=== PATIENT | female | born 1970 | race American Indian/Alaskan Native ===

== ENCOUNTER 2019-11-10 19:38 | Emergency (ER) | payer SELFPAY ==
[2019-11-10] MEDS ORDERED: ASPIRIN 325 MG TAB PO ONE (20:19)
--- NOTE | 2019-11-10 20:57 | XRay Report ---
CHEST 2 VIEWS INDICATION: Chest Pain. COMPARISON: None. FINDINGS: Support devices: None. Heart: Mild cardiac enlargement. Lungs/Pleura: No acute air space or interstitial disease. No significant pleural effusion. IMPRESSION: No acute findings. Signer Name: Papo Dunne MD Signed: 11/10/2019 8:53 PM Workstation Name: [id number]
[2019-11-10 21:05] LABS: Basophils # (Auto) 0.1 K/mm3 (0.0-0.1); Eosinophils # (Auto) 0.2 K/mm3 (0.0-0.4); Eosinophils % (Auto) 3.8 % (0.0-4.3); Hematocrit 35.4 % (30.3-42.9); Hemoglobin 11.7 gm/dl (10.1-14.3); Lymphocytes # (Auto) 2.2 K/mm3 (1.2-5.4); Lymphocytes % (Auto) 36.8 % (13.4-35.0); Mean Corpuscular HGB Conc 33 % (30-34); Mean Corpuscular Volume 74 fl (79-97); Monocytes # (Auto) 0.6 K/mm3 (0.0-0.8); Monocytes % (Auto) 10.2 % (0.0-7.3); Platelet Count 279 K/mm3 (140-440); Red Blood Count 4.76 M/mm3 (3.65-5.03); Red Cell Distribution Width 19.6 % (13.2-15.2)
[2019-11-10 21:21] LABS: BUN/Creatinine Ratio 21; Blood Urea Nitrogen 17 mg/dL (7-17); Calcium 9.2 mg/dL (8.4-10.2); Hemolysis Index 14
[2019-11-11] MEDS ORDERED: amLODIPine 5 MG TAB PO ONE (00:50)
[2019-11-11 00:51] VITALS: BP 164/100
--- NOTE | 2019-11-11 01:12 | Emergency Department Report ---
ED General Adult HPI - General Chief complaint: Chest Pain Stated complaint: BLOOD PRESSURE PROBLEM Time Seen by Provider: 11/11/19 00:35 Source: family Mode of arrival: Ambulatory Limitations: No Limitations - History of Present Illness Initial comments: Patient is a 49-year-old F [place] female who is presenting with elevated blood pressure. Patient states she has a history of high blood pressure but is currently on no medications. She has no primary care physician. Patient is been urged to come to the hospital by her daughter. Patient states her blood pressure normally is around 170-180 systolic. Today she was having some chest discomfort that she described as a sore intermittent pain with no shortness of breath. She had a mild headache. She took her blood pressure and was greater than 200 systolic. On arrival was 223/110. Patient states chest discomfort is 2 out of 10 in severity. She denies cough cold congestion shortness of breath fevers chills. There is no exertional component to her chest discomfort. - Related Data Previous Rx's Medication Instructions Recorded Last Taken Type Amlodipine Besylate [Norvasc] 5 mg PO DAILY #30 tablet 11/11/19 Unknown Rx Allergies Allergy/AdvReac Type Severity Reaction Status Date / Time No Known Allergies Allergy Unverified 11/10/19 20:19 ED Review of Systems ROS: Stated complaint: BLOOD PRESSURE PROBLEM Other details as noted in HPI Comment: All other systems reviewed and negative ED Past Medical Hx - Past Medical History Previous Medical History?: Yes Hx Hypertension: Yes - Surgical History Past Surgical History?: No - Social History Smoking Status: Never Smoker Substance Use Type: None - Medications Home Medications: Home Medications Medication Instructions Recorded Confirmed Last Taken Type Amlodipine Besylate [Norvasc] 5 mg PO DAILY #30 tablet 11/11/19 Unknown Rx ED Physical Exam - General Limitations: No Limitations General appearance: alert, in no apparent distress - Head Head exam: Present: atraumatic, normocephalic - Eye Eye exam: Present: normal appearance, PERRL, EOMI - ENT ENT exam: Present: mucous membranes moist - Neck Neck exam: Present: normal inspection - Respiratory Respiratory exam: Present: normal lung sounds bilaterally. Absent: respiratory distress, wheezes, rales, rhonchi - Cardiovascular Cardiovascular Exam: Present: regular rate, normal rhythm, normal heart sounds. Absent: systolic murmur, diastolic murmur, rubs, gallop - GI/Abdominal GI/Abdominal exam: Present: soft, normal bowel sounds. Absent: distended, tenderness, guarding, rebound - Extremities Exam Extremities exam: Present: normal inspection - Back Exam Back exam: Present: normal inspection - Neurological Exam Neurological exam: Present: alert, oriented X3 - Psychiatric Psychiatric exam: Present: normal affect, normal mood - Skin Skin exam: Present: warm, dry, intact, normal color. Absent: rash ED Course Vital Signs 11/10/19 11/11/19 20:06 00:50 Temperature 98.5 F Pulse Rate 68 Respiratory 18 Rate Blood Pressure 223/110 Blood Pressure 164/100 [Left] O2 Sat by Pulse 99 Oximetry ED Medical Decision Making - Lab Data Result diagrams: 11/10/19 20:28 11/10/19 20:28 Lab Results 11/10/19 11/10/19 11/10/19 Range/Units 20:28 20:28 23:33 WBC 5.9 (4.5-11.0) K/mm3 RBC 4.76 (3.65-5.03) M/mm3 Hgb 11.7 (10.1-14.3) gm/dl Hct 35.4 (30.3-42.9) % MCV 74 L (79-97) fl MCH 25 L (28-32) pg MCHC 33 (30-34) % RDW 19.6 H (13.2-15.2) % Plt Count 279 (140-440) K/mm3 Lymph % (Auto) 36.8 H (13.4-35.0) % [place] % (Auto) 10.2 H (0.0-7.3) % Eos % (Auto) 3.8 (0.0-4.3) % Baso % (Auto) 1.0 (0.0-1.8) % Lymph # 2.2 (1.2-5.4) K/mm3 [place] # 0.6 (0.0-0.8) K/mm3 Eos # 0.2 (0.0-0.4) K/mm3 Baso # 0.1 (0.0-0.1) K/mm3 Seg Neutrophils % 48.2 (40.0-70.0) % Seg Neutrophils # 2.9 (1.8-7.7) K/mm3 Sodium 137 (137-145) mmol/L Potassium 3.9 (3.6-5.0) mmol/L Chloride 103.5 (98-107) mmol/L Carbon Dioxide 21 L (22-30) mmol/L Anion Gap 16 mmol/L BUN 17 (7-17) mg/dL Creatinine 0.8 (0.6-1.2) mg/dL Estimated GFR > 60 ml/min BUN/Creatinine Ratio 21 % Glucose 121 H (65-100) mg/dL Calcium 9.2 (8.4-10.2) mg/dL Troponin T < 0.010 < 0.010 (0.00-0.029) ng/mL - EKG Data -: EKG Interpreted by Ms - EKG Data 11/11/19 01:08 EKG shows sinus rhythm rate of 64. [place] is normal intervals show a prolonged QT. There is flipped T waves in V5 and V6. There is no ST segment elevations or depressions. There is evidence of LVH. Time of interpretation 2019 - Radiology Data Chest x-ray shows no acute process - Medical Decision Making Patient is a 49-year-old F [place] female is presenting with chest discomfort which is very atypical. She has had 2- troponins. Patient is recheck of her blood pressure when she was on the room was 160 systolic. Patient will be started on Norvasc 5 mg to be discharged on this medication. Has been urged to follow-up with her primary care physician in approximately a week. Patient has no signs or symptoms of endorgan damage at this time. Patient be discharged home. Critical care attestation.: If time is entered above; I have spent that time in minutes in the direct care of this critically ill patient, excluding procedure time. ED Disposition Clinical Impression: Hypertensive urgency Disposition: DC-01 TO HOME OR SELFCARE Is pt being admited?: No Does the pt Need Aspirin: No Condition: Stable Instructions: Hypertension (ED) Referrals: RACHID TAMEZ MD [Staff Physician] - 3-5 Days Time of Disposition: 01:25
== END 2019-11-11 01:40 | disposition home or self-care (01) ==
LOC: ED 19:38
DX: I16.0 Hypertensive urgency (principal)
CPT/HCPCS: 36415; 71046; 80048; 84484; 85025; 93005